=== PATIENT | female | born 1995 | race Two or more races ===

== ENCOUNTER 2020-01-03 20:11 | Emergency (ER) | payer OTHER ==
[~2020-01-03] VITALS: Ht 157.5 cm; Wt 65.9 kg
[2020-01-03] MEDS ORDERED: PROPARACAINE HCL 0.5% 15 ML OPHTHALMIC SOLUTION OD ONE (22:30)
[2020-01-03] MEDS ORDERED: FLUORESCEIN SODIUM 1 MG STRIP OD ONE (22:30)
[2020-01-03] MEDS ORDERED: ERYTHROMYCIN 0.5% 3.5 GM TUBE OPHTHALMIC OINTMENT OD ONE (23:00)
[2020-01-03 23:30] VITALS: BP 119/73
== END 2020-01-03 23:46 | disposition home or self-care (01) ==
LOC: EMS 20:15
DX: S00.11XA Contusion of right eyelid and periocular area, initial encounter (principal); F17.210 Nicotine dependence, cigarettes, uncomplicated; Z90.89 Acquired absence of other organs; W22.8XXA Striking against or struck by other objects, initial encounter; Y93.89 Activity, other specified; Y92.89 Other specified places as the place of occurrence of the external cause; Y99.8 Other external cause status